=== PATIENT | male | born 1945 | race Caucasian/White ===

== ENCOUNTER → 2016-11-01 | Day surgery (SDC) | payer MEDICARE ==
[~2016-11-01] MED LIST: ACCUPRIL PO; ACCUPRIL40 MG PO; ASPIRIN EC81 M1 PO; ASPIRIN81 M2 PO; ATENOLOL PO; ATENOLOL50 MG PO; COLACE PO; HYDROCHLOROTHIA25 MG PO; HYDROCODON-ACE1 EAC4 PO; LIPITOR PO; MULTI-DAY VITAM1 TAB PO; NORCO 10/3251 TAB PO; OMEPRAZOLE20 M1 PO; OMEPRAZOLE40 M1 PO; OMEPRAZOLE40 MG PO; OXYCODONE HCL5 M1 PO; TENORMIN25 M1 PO
--- NOTE | ~2016-11-01 | OR ---
Unit #: [id number] #: [id number] Patient: BOBBI TANNER [id number] [address] [address] [id number] O MR#: [id number] NAME: BOBBI TANNER ROOM: Date of Procedure: 11/01/2016 Admission Date: 11/01/2016 Surgeon: José Miguel Guillen M.D. : 1945 Attending Physician: José Miguel Guillen M.D. Primary Care Physician: Jesus Alberto White M.D. OPERATIVE REPORT PREOPERATIVE DIAGNOSES Back pain, radiculopathy, degenerative disk disease. POSTOPERATIVE DIAGNOSES Back pain, radiculopathy, degenerative disk disease. PROCEDURE PERFORMED Lumbar epidural steroid injection with intravenous sedation and fluoroscopic guidance for needle localization. INDICATIONS FOR PROCEDURE The patient is a 71-year-old male with severe multisite degenerative joint disease, who has had multiple joint injections including both shoulders, both hips and one knee. He has had problems with increased back and radicular pain since his last hip replacement. This has not settled with conservative treatment. His physical examination is consistent with lumbar radiculopathy. He has known degenerative change. The plan is for a trial of epidural steroids based on his failure to respond to conservative modalities and intractability of the symptoms. DESCRIPTION OF PROCEDURE The patient was placed in the seated position. Standard monitors were applied. 2 mg of Versed were given for sedation and anxiolysis, which were adequate. Vital signs remained stable. Sterile prep and drape then of the lumbar area was performed. The skin then at the L4-L5 level was localized with 1% lidocaine. An 18-gauge Hustead needle was then advanced via loss of resistance technique and fluoroscopic guidance in toward the epidural space. After confirming proper positioning with fluoroscopy and radiographic contrast, 80 mg of Depo-Medrol and 4 mL of 0.125% bupivacaine were deposited. The patient tolerated the procedure otherwise well and was discharged to recovery room in stable condition. Dictated by... Cinthia Landis/kika TD: 11/02/2016 01:06 JOB #: [id number] Unit #: [id number] #: [id number] Patient: TODD TANNERASHLEY Thompson OPERATIVE REPORT X José Miguel Guillen MD X PROCEDURE OPERATIVE NOTE
== END | disposition home or self-care (01) ==
LOC: CCSC 07:34
DX: M51.16 Intervertebral disc disorders with radiculopathy, lumbar region (principal)
CPT/HCPCS: J1040; J2250

== ENCOUNTER → 2016-11-22 | Day surgery (SDC) | payer MEDICARE ==
--- NOTE | ~2016-11-22 | OR ---
Unit #: [id number] #: [id number] Patient: BOBBI TANNER [id number] [address] [address] [id number] O MR#: [id number] NAME: BOBBI TANNER ROOM: Date of Procedure: 11/22/2016 Admission Date: 11/22/2016 Surgeon: José Miguel Guillen M.D. : 1945 Attending Physician: José Miguel Guillen M.D. Primary Care Physician: Jesus Alberto White M.D. OPERATIVE REPORT PREOPERATIVE DIAGNOSES 1. Back pain. 2. Radiculopathy. 3. Degenerative lumbar disk disease. POSTOPERATIVE DIAGNOSES 1. Back pain. 2. Radiculopathy. 3. Degenerative lumbar disk disease. PROCEDURE PERFORMED Lumbar epidural steroid injection with intravenous sedation and fluoroscopic guidance for needle localization. INDICATIONS FOR PROCEDURE The patient is a 71-year-old male with worsening back, hip, and lower extremity pain due to multilevel multifactorial degenerative disk disease. He has not settled with conservative treatment. It was difficult to separate some of the symptoms due to the fact that he has significant issues with degenerative joint disease in multiple areas, decision was made to give the patient a trial of epidural steroids based on his history, pathology, symptomatology, and treatment options. Initial injection resulted in some moderate settling of the symptom complex. Plan is to repeat a second injection at this point. If there is not much more substantial improvement, we would hold any further treatment. DESCRIPTION OF PROCEDURE The patient was placed in a seated position. Standard monitors were applied. 2 mg of Versed were given for sedation and anxiolysis, which were adequate. Vital signs remained stable. Sterile prep and drape then of the lumbar area was performed. The skin then at the L4-L5 level was localized with 1% lidocaine just to the right of midline. An 18-gauge CENTERSONICtead needle was then advanced via loss of resistance technique and fluoroscopic guidance in toward the epidural space. After confirming proper positioning with fluoroscopy and radiographic contrast, 80 mg of Depo-Medrol and 6 mL of 0.125% bupivacaine were deposited. The patient tolerated the procedure otherwise well and was discharged to the recovery room in stable condition. Dictated by... Unit #: [id number] #: [id number] Patient: BOBBI TANNER Cinhtia Landis/kika TD: 11/23/2016 02:20 JOB #: [id number] OPERATIVE REPORT Page 1 of 1 X José Miguel Guillen MD X PROCEDURE OPERATIVE NOTE
== END | disposition home or self-care (01) ==
LOC: CCSC 08:22
DX: M51.16 Intervertebral disc disorders with radiculopathy, lumbar region (principal); I10 Essential (primary) hypertension; K21.9 Gastro-esophageal reflux disease without esophagitis; M19.90 Unspecified osteoarthritis, unspecified site
CPT/HCPCS: J1040; J2250